=== PATIENT | female | born 1975 | race African-American/Black ===

== ENCOUNTER 2017-02-10 16:30 | Emergency (ER) | payer OTHER ==
[2017-02-10 19:38] LABS: PLATELET COUNT 304 x10^3mcL (130-400)
[2017-02-10 19:41] LABS: RED CELL DISTRIBUTION WIDTH 14.8 % (11.5-14.5)
[2017-02-10 19:44] LABS: CALCIUM 9.6 mg/dL (8.5-10.1); CARBON DIOXIDE 23.3 mmol/L (21-32); CHLORIDE SERUM 106 mmol/L (98-107); GFR1 > 60 mL/min; GLUCOSE SERUM 185 mg/dL (74-106); POTASSIUM SERUM 4.7 mmol/L (3.5-5.1); SODIUM SERUM 140 mmol/L (136-145)
[2017-02-10 19:49] LABS: ALBUMIN 4.2 g/dL (3.4-5.0); ALKALINE PHOSPHATASE 58 U/L (46-116); ALT/SGPT 17 U/L (14-59); AST/SGOT 17 U/L (15-37); BILIRUBIN TOTAL 0.18 mg/dL (0.20-1.00); TOTAL PROTEIN, SERUM 8.2 g/dL (6.4-8.2)
[2017-02-10 20:39] LABS: MONOCYTE 8 % (0-7); SEGMENTED NEUTROPHILS 56 % (37-75); rbc morphology (normal/abnorm) NORMAL (NORMAL)
[2017-02-10 21:15] VITALS: BP 106/71
== END 2017-02-10 21:15 | disposition home or self-care (01) ==
LOC: ED 16:30
PROVIDERS: Emergency Medicine
DX: R51 Headache (principal); R03.0 Elevated blood-pressure reading, without diagnosis of hypertension; M25.512 Pain in left shoulder; M25.522 Pain in left elbow; Z79.899 Other long term (current) drug therapy; Z88.8 Allergy status to other drugs, medicaments and biological substances
CPT/HCPCS: 36415; J1885; J3010; Q0162

== ENCOUNTER 2017-03-26 21:26 | Emergency (ER) | payer OTHER ==
[2017-03-26 22:55] LABS: UA SPECIFIC GRAVITY >=1.030 (1.005-1.035); microscopic required? YES
[2017-03-26 22:56] LABS: urine erythrocyte 1+ (NEGATIVE)
[2017-03-26 23:09] VITALS: BP 128/90
== END 2017-03-26 23:09 | disposition home or self-care (01) ==
LOC: ED 21:26
PROVIDERS: Specialist
DX: N39.0 Urinary tract infection, site not specified (principal); Z88.8 Allergy status to other drugs, medicaments and biological substances; Z98.51 Tubal ligation status

== ENCOUNTER 2017-03-27 15:10 | Emergency (ER) | payer OTHER ==
[2017-03-27 16:23] LABS: UA SPECIFIC GRAVITY 1.025 (1.005-1.035); microscopic required? YES; urine erythrocyte TRACE (NEGATIVE)
[2017-03-27 16:24] LABS: CALCIUM 9.1 mg/dL (8.5-10.1); CARBON DIOXIDE 26.6 mmol/L (21-32); CHLORIDE SERUM 105 mmol/L (98-107); GFR1 > 60 mL/min; GLUCOSE SERUM 127 mg/dL (74-106); POTASSIUM SERUM 3.3 mmol/L (3.5-5.1); SODIUM SERUM 140 mmol/L (136-145)
[2017-03-27 16:26] LABS: BASOPHIL % 0.5 % (0-2); PLATELET COUNT 301 x10^3mcL (130-400)
[2017-03-27 16:28] LABS: RED CELL DISTRIBUTION WIDTH 15.2 % (11.5-14.5)
[2017-03-27 18:00] VITALS: BP 109/77
== END 2017-03-27 18:00 | disposition home or self-care (01) ==
LOC: ED 15:10
PROVIDERS: Emergency Medicine
DX: N39.0 Urinary tract infection, site not specified (principal); E87.6 Hypokalemia; Z88.8 Allergy status to other drugs, medicaments and biological substances
CPT/HCPCS: J0696; J1885; J3010; J7030; Q0092

== ENCOUNTER 2017-04-22 17:48 | Emergency (ER) | payer OTHER ==
[2017-04-22 20:01] LABS: UA SPECIFIC GRAVITY >=1.030 (1.005-1.035); microscopic required? YES; urine erythrocyte 2+ (NEGATIVE)
[2017-04-22 21:38] VITALS: BP 124/76
== END 2017-04-22 21:38 | disposition home or self-care (01) ==
LOC: ED 17:48
PROVIDERS: Emergency Medicine
DX: N76.0 Acute vaginitis (principal); R30.0 Dysuria; R11.2 Nausea with vomiting, unspecified; E11.9 Type 2 diabetes mellitus without complications; R63.0 Anorexia; Z90.710 Acquired absence of both cervix and uterus; Z98.51 Tubal ligation status; Z88.8 Allergy status to other drugs, medicaments and biological substances; Z79.84 Long term (current) use of oral hypoglycemic drugs; Z98.890 Other specified postprocedural states
CPT/HCPCS: 87491; 87591

== ENCOUNTER 2018-12-23 20:47 | Emergency (ER) | payer OTHER ==
[~2018-12-23] VITALS: Ht 162.6 cm; Wt 80.3 kg
[2018-12-23 21:12] VITALS: Ht 162.6 cm; Wt 80.3 kg
[2018-12-24 01:30] VITALS: BP 116/71
== END 2018-12-24 01:30 | disposition home or self-care (01) ==
LOC: ED 20:47
DX: R30.0 Dysuria (principal); N93.8 Other specified abnormal uterine and vaginal bleeding; Z98.51 Tubal ligation status; Z90.712 Acquired absence of cervix with remaining uterus; Z88.8 Allergy status to other drugs, medicaments and biological substances
CPT/HCPCS: 87491; 87591

== ENCOUNTER 2020-05-14 20:06 | Emergency (ER) | payer OTHER ==
[~2020-05-14] VITALS: Ht 160 cm; Wt 76.2 kg
[2020-05-14 20:16] VITALS: Ht 160 cm; Wt 76.2 kg
[2020-05-15 01:42] VITALS: BP 132/82
== END 2020-05-15 00:35 | disposition home or self-care (01) ==
LOC: ED 20:06
DX: L02.31 Cutaneous abscess of buttock (principal); Z98.51 Tubal ligation status; Z90.711 Acquired absence of uterus with remaining cervical stump
CPT/HCPCS: J2001; J2405; J3490

== ENCOUNTER 2020-08-16 18:35 | Emergency (ER) | payer OTHER ==
[~2020-08-16] VITALS: Ht 160 cm; Wt 74.8 kg
[2020-08-16 18:45] VITALS: Ht 160 cm; Wt 74.8 kg
[2020-08-16 21:07] VITALS: BP 133/67
== END 2020-08-16 21:07 | disposition home or self-care (01) ==
LOC: ED 18:35
DX: N76.0 Acute vaginitis (principal); L73.9 Follicular disorder, unspecified; L03.317 Cellulitis of buttock; E11.9 Type 2 diabetes mellitus without complications; Z98.51 Tubal ligation status; Z90.711 Acquired absence of uterus with remaining cervical stump; Z88.8 Allergy status to other drugs, medicaments and biological substances
CPT/HCPCS: 82962; J2001